=== PATIENT | male | born 1950 | race Caucasian/White ===

== ENCOUNTER 2018-11-08 12:40 | Outpatient (CLI) | payer MEDICARE ==
--- NOTE | 2018-11-08 14:51 | MRI ---
MRI CERVICAL SPINE: 11/08/2018 PROVIDED CLINICAL HISTORY: Neck pain and left arm pain. FINDINGS: Cervical alignment appears normal. Postoperative changes of ACDF are seen at C5-C6. Regional marrow signal unaffected by metallic susceptibility artifact appears normal. The visualized posterior immanuel a, cervicomedullary junction, and cervical spinal cord demonstrate normal signal and morphology. C2-C3: There is left-sided facet arthritis that produces moderate left foraminal narrowing. No sign ificant central canal or right foraminal narrowing apparent. Right facet arthritis is also seen. C3-C4: There is a broad-based disk bulge and bilateral uncinate process hypertrophy, as well as bila teral facet arthritis, producing severe bilateral foraminal narrowing. No significant central canal stenosis. C4-C5: There is a broad-based disk bulge and tgub-lemfiam-inea-right uncinate process hypertrophy, a s well as bilateral facet arthritis. Moderate right and severe left foraminal narrowing. Mild effac ement of the ventral subarachnoid space without cord contact or deformity. C5-C6: There is a broad-based disk osteophyte complex and bilateral uncinate process hypertrophy. T here is focal effacement of the right ventral lateral subarachnoid spaces with mild flattening of the right ventral hemicord due to osteophyte formation. Mild bilateral foraminal narrowing. C6-C7: There is a broad-based disk bulge and bilateral facet arthritis, as well as bilateral uncinat e process hypertrophy. There is a left foraminal disk protrusion suspected, with associated prominen t left foraminal narrowing. C7-T1: There is bilateral facet arthritis without significant central canal or foraminal narrowing a pparent. IMPRESSION: Cervical degenerative changes producing primarily foraminal narrowing, as described above. POS: [facility]
== END 2018-11-08 12:41 | disposition home or self-care (01) ==
LOC: TBSIIMAG 12:40
PROVIDERS: ATTEND Nurse Practitioner Family
DX: M47.22 Other spondylosis with radiculopathy, cervical region (principal); M48.02 Spinal stenosis, cervical region; M48.03 Spinal stenosis, cervicothoracic region; M47.23 Other spondylosis with radiculopathy, cervicothoracic region
CPT/HCPCS: 72141

== ENCOUNTER 2019-04-23 05:48 | Day surgery (SDC) | payer MEDICARE ==
[2019-04-22 10:43] VITALS: BMI 35.2
--- NOTE | 2019-04-22 21:26 | HP ---
HISTORY OF PRESENT ILLNESS: Mr. Howard is a pleasant 68-year-old man here today for evaluation of several years of left upper extremity arm pain. This is mostly C7 pattern. He has been receiving epidural steroid injections with Dr. Ortega with variable relief and has reached a point now whether they are not as effective as he is now essentially in constant pain with or without injection. 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 PAST MEDICAL HISTORY: Significant for gout, rosacea, hypertension, coronary arterial disease, neuropathy, gastroesophageal reflux disease. CURRENT MEDICATIONS: 1. Modafinil. 2. Dexilant. 3. Nexium. 4. Lyrica. 5. Aspirin. 6. Atorvastatin. 7. Plavix. 8. Valsartan. 9. Metronidazole. 10. Ketoconazole. 11. Clindamycin. 12. Uloric. ALLERGIES: TO AMOXICILLIN. PAST SURGICAL HISTORY: Cholecystectomy. PHYSICAL EXAMINATION: GENERAL: The patient is alert and oriented x3. Gait is normal. No ataxia. EXTREMITIES: Upper extremity exam is normal. Reflexes equal and present bilaterally in the biceps tendon. REVIEW OF SYSTEMS: Denies fever, chills, weight loss, night sweats. Positive energy. Denies indigestion, vomiting, black stool. Denies burning with urination, incontinence. Denies joint pain. Reports arm pain. Reports numbness and tingling. ASSESSMENT: Cervical radiculopathy. PLAN: Dr. Mack met with the patient, reviewed imaging, advocated for C6-7 ACDF. He explained to the patient the risks, benefits, and alternatives of the procedure. The patient expressed understanding and elected for surgery as discussed. I do believe the patient has been competent and capable of making medical decisions for himself. We will move forward with surgery as planned. Job ID: [id number]
[2019-04-23] MEDS ORDERED: Fentanyl 100 MCG/2 ML VIAL ONE ×3 (06:15→09:22)
[2019-04-23] MEDS ORDERED: Thrombin 5000 UNITS/5 ML VIAL ONE (06:18)
[2019-04-23 07:01] LABS: #Basophils 0.1 thou/uL (0.0-0.2); #Eosinphils 0.3 thou/uL (0.0-0.7); #Lymphocytes 1.8 thou/uL (1.20-3.40); #Monocytes 0.5 thou/uL (0.11-0.59); #Neutrophils 3.3 thou/uL (1.40-6.50); %Basophils 1.1 % (0.0-1.0); %Eosinophils 5.4 % (0.0-10.0); %Lymphocytes 29.9 % (21.0-51.0); %Monocytes 7.7 % (0.0-10.0); Hemoglobin 14.3 g/dL (14.0-18.0); Mean Corpuscular HGB CONC 33.4 g/dL (32.0-36.0); Mean Corpuscular Hemoglobin 30.4 pg (27.0-31.0); Mean Corpuscular Volume 90.9 fL (78.0-98.0); Mean Platelet Volume 8.3 fL (7.4-10.4); Platelet Count 202 thou/uL (130-400); RBC Distribution Width 12.6 % (11.5-14.5); Red Blood Cell (RBC) Count 4.71 mill/uL (4.70-6.10); White Blood Cell (WBC) Count 5.9 thou/uL (4.8-10.8)
[2019-04-23 07:19] LABS: Anion Gap 12 mmol/L (10-20); BUN (Urea Nitrogen) 10 mg/dL (8.4-25.7); Calc. Creatinine Clearance 111 mL/min (70-130); Carbon Dioxide 26 mmol/L (23-31); Chloride 106 mmol/L (98-107); Estimated GFR-MDRD 70; Glucose 116 mg/dL (80-115); Potassium 3.9 mmol/L (3.5-5.1); Sodium 140 mmol/L (136-145)
[2019-04-23] MEDS ORDERED: Tamsulosin HCl 0.4 MG CAP ONE (09:19)
[2019-04-23] MEDS ORDERED: tiZANidine HCl 4 MG TAB ONE (09:40)
[2019-04-23] MEDS ORDERED: Acetaminophen/Codeine 30-300mg Tablet ONE (11:35)
--- NOTE | 2019-04-23 11:42 | OP ---
DATE OF PROCEDURE: 04/23/2019 CONTROLLER REPAIRER AND TESTER: Marc Milligan PA-C INDICATION: Pain. DIAGNOSIS: Cervical radiculopathy. PROCEDURES PERFORMED: Reoperation anterior cervical diskectomy and fusion, C6-C7, exploration of fusion C5-C6. ANESTHESIA: General. DESCRIPTION OF PROCEDURE: The patient was brought into the operating room and placed under general anesthesia. He was placed on table in supine position. A transverse incision was planned at the location of the previous incision on the right side just above the collarbone. After prepping and draping and after an appropriate preoperative pause, the incision was created. There was extensive amount of scar from just beneath the skin incision all the way down to the prevertebral space. We spent an extensive amount of time dissecting through this scar and as such, a surgical modifier 22 will be applied. Self-retaining retractors were placed. The previously placed plate at C5-C6 was identified. There was a large ectopic piece of bone emanating inferiorly from the plate, where discernible disk space could not be identified. Rongeur as well as a high-speed cutting drill bit was used to remove this area of fusion in order to identify the C6-C7 disk space. After identification of the disk space, annulotomy was performed and curette as well as 1 and 2 and 3 mm Kerrisons were used to perform a diskectomy as well as perform foraminotomies over the exiting nerve roots. This also took additional time secondary to the exposure, scarring, and ectopic bone. As such, surgical modifier will be placed. After decompressing the segment, a 6 mm lordotic PEEK cage packed with allograft and autograft material was placed within the interbody space. The wound was then copiously irrigated. Hemostasis was maintained throughout. The wound was then closed in anatomic layers and a pressure dressing was applied. There were no known procedural complications. Job ID: [id number]
--- NOTE | 2019-04-23 20:27 | EKG ---
Test Reason : PREOP Blood Pressure : / mmHG Vent. Rate : 062 BPM Atrial Rate : 062 BPM P-R Int : 202 ms QRS Dur : 102 ms QT Int : 418 ms P-R-T Axes : 002 -01 055 degrees QTc Int : 424 ms Normal sinus rhythm Normal ECG No previous ECGs available Confirmed by NIKIA BAKER, DR. De Dios ([id number]) on 04/23/2019 8:27:14 PM Referred By: Simin PAULSON Confirmed By:DR. Va MONTEJO MD
== END 2019-04-23 11:40 | disposition home or self-care (01) ==
LOC: SDC 05:48
PROVIDERS: ATTEND Neurological Surgery
PROC: 0RG10A0 Fusion of Cervical Vertebral Joint with Interbody Fusion Device, Anterior Approach, Anterior Column, Open Approach (ICD-10-PCS; principal; 2019-04-23)
PROC: 0RT30ZZ Resection of Cervical Vertebral Disc, Open Approach (ICD-10-PCS; 2019-04-23)
DX: M50.123 Cervical disc disorder at C6-C7 level with radiculopathy (principal); M10.9 Gout, unspecified; I10 Essential (primary) hypertension; I25.10 Atherosclerotic heart disease of native coronary artery without angina pectoris; K21.9 Gastro-esophageal reflux disease without esophagitis; G62.9 Polyneuropathy, unspecified; Z79.02 Long term (current) use of antithrombotics/antiplatelets; Z79.82 Long term (current) use of aspirin; Z79.899 Other long term (current) drug therapy; Z88.0 Allergy status to penicillin; Z98.1 Arthrodesis status
CPT/HCPCS: 76000; 80048; 85025; 93005; 93010; C1776; J0690; J3010